=== PATIENT | male | born 1960 | race Caucasian/White ===

== ENCOUNTER 2016-10-22 09:28 | Outpatient (CLI) | payer BC ==
[2014-10-01 11:35] VITALS: BP 142/60
[2016-10-22 10:16] LABS: eGFR (African) > 60; eGFR (Non-African) > 60
== END 2016-10-22 09:30 ==
LOC: LAB 09:28
PROVIDERS: ATTEND Family Medicine
DX: E78.2 Mixed hyperlipidemia (principal)
CPT/HCPCS: 36415; 80053; 80061

== ENCOUNTER 2016-10-27 07:49 | Outpatient (CLI) | payer BC ==
[2014-10-01 11:35] VITALS: BP 142/60
--- NOTE | 2016-10-27 17:23 | Diagnostic Imaging Report ---
[facility] [address] [facility].[address] [address] Report Submission Date: Oct 27, 2016 3:37:14 PM CASTING MACHINE OPERATOR Patient Study Name: ORALIA NICHOLS Date: Oct 27, 2016 8:07:03 AM CASTING MACHINE OPERATOR Modality Type: US Gender: M Description: ABDOMEN COMPLETE : 56 Institution: [facility] Physician: RICHARD OTT - OP Ultrasound abdomen History: 6 MONTH FOLLOW-UP, THROMBOCYTOPENIA, ALCOHOLIC CIRRHOSIS Multiple grayscale and color Doppler images of the abdomen are submitted Findings: Comparison: September 30, 2010 Visualized portion of the pancreatic head and body are within normal limits The liver is enlarged and heterogeneous in echotexture suggestive of hepatic steatosis Portal venous flow is antegrade to the liver The aorta demonstrates atherosclerotic disease, it is normal in caliber The right kidney measures 11 x 7 x 6 cm there is no obvious right hydronephrosis Gallbladder wall thickness measures 3.5 mm, slightly thickened. Minimal sludge/ tiny stones are seen in the gallbladder. Common bile duct measures 6 mm in its proximal portion, previously 3.4 mm The left kidney margins are not well seen, it measures 12.5 x 6.7 x 5.3 cm, no left hydronephrosis. Duplicated left renal collecting system is questioned. Spleen measures 11.8 cm Impression: 1. Hepatomegaly. Coarse hepatic echotexture may be due to hepatic steatosis/ known cirrhosis 2. Small amount of sludge versus tiny gallstones. Gallbladder wall is slightly thickened. No evidence of pericholecystic fluid. Prominent common bile duct. 3. No hydronephrosis bilaterally 4. Spleen measures 11.8 cm Electronically signed on Oct 27, 2016 3:37:14 PM CASTING MACHINE OPERATOR by: Blanca MCALLISTER
== END 2016-10-27 07:50 ==
LOC: RAD 07:49
PROVIDERS: ATTEND Family Medicine
DX: D69.6 Thrombocytopenia, unspecified (principal); K70.30 Alcoholic cirrhosis of liver without ascites
CPT/HCPCS: 76700

== ENCOUNTER 2016-11-27 13:07 | Outpatient (CLI) | payer BC ==
[2014-10-01 11:35] VITALS: BP 142/60
== END 2016-11-27 13:10 ==
LOC: POD 13:07
PROVIDERS: ATTEND Podiatrist
DX: B35.1 Tinea unguium (principal); M79.674 Pain in right toe(s); M79.675 Pain in left toe(s)
CPT/HCPCS: 99214

== ENCOUNTER 2017-04-08 07:14 | Outpatient (CLI) | payer BC ==
[2014-10-01 11:35] VITALS: BP 142/60
[2017-04-08 08:16] LABS: eGFR (African) > 60; eGFR (Non-African) > 60
== END 2017-04-08 07:15 ==
LOC: LAB 07:14
PROVIDERS: ATTEND Family Medicine
DX: E78.2 Mixed hyperlipidemia (principal); R73.9 Hyperglycemia, unspecified
CPT/HCPCS: 36415; 80053; 80061; 83036

== ENCOUNTER 2017-04-13 07:42 | Outpatient (CLI) | payer BC ==
[2014-10-01 11:35] VITALS: BP 142/60
--- NOTE | 2017-04-13 15:12 | Diagnostic Imaging Report ---
[facility] [address] [facility].[address] [address] Report Submission Date: Apr 13, 2017 1:51:10 PM CDT Patient Study Name: ORALIA NICHOLS Date: Apr 13, 2017 7:59:21 AM CDT Modality Type: US Gender: M Description: ABDOMEN COMPLETE : 56 Institution: [facility] Physician RICHARD OTT - MARY Ultrasound abdomen complete Date of exam: April 13, 2017. Clinical History: CIRRHOSIS, 6 MONTH FOLLOW-UP (Hx) FINDINGS: Comparison is made with October 27, 2016. The liver remains course in echogenicity with somewhat nodular surface contour suggesting underlying cirrhosis or fatty liver. No hepatic mass or ascites is identified. Normal Doppler color flow again evident in the portal vein. The liver measures 16.8 cm. The aorta measures 2.5 cm proximally, 1.9 cm 2.0 cm distal 8. The right kidney measures 10.6 x 6.0 x 6.4 cm. There is a small mid renal right cortical cyst. No hydronephrosis is identified. Multiple mobile gallstones are present within the gallbladder. The gallbladder measures 7 cm with gallbladder wall thickness at the upper limits of normal measuring 0.35 cm. This may be secondary to mild cholecystitis or related to underlying cirrhosis. The common bile duct measures a row 0.6 cm. The left kidney measures 13.2 x 7.0 x 6.1 cm and is normal in appearance. The spleen measures 12 cm and is homogeneous in echogenicity. IMPRESSION: Echogenic liver that may represent underlying cirrhosis or fatty liver. Cholelithiasis and gallbladder wall thickening. The gallbladder wall thickening may represent mild cholecystitis or may be related to underlying cirrhosis. Electronically signed on Apr 13, 2017 1:51:10 PM CDT by: Janice MCALLISTER
== END 2017-04-13 07:43 ==
LOC: RAD 07:42
PROVIDERS: ATTEND Family Medicine
DX: K70.30 Alcoholic cirrhosis of liver without ascites (principal)
CPT/HCPCS: 76700

== ENCOUNTER 2017-06-21 11:32 | Day surgery (SDC) | payer BC ==
[2014-10-01 11:35] VITALS: BP 142/60
[~2017-06-21 11:32] MED LIST: LACTATED RINGERS 1,000 ML IV.SOLN IV ONE; PROPOFOL 500 MG/50 ML VIAL IV ONE; SALINE FLUSH 10 ML DISP.SYRIN IVF ONE
--- NOTE | 2017-06-21 13:41 | GI Report ---
REFERRING PHYSICIAN: Dr. Jodi Mojica ROTARY ENGRAVER: Vance Foster MD PROCEDURE MEDICATION: Propofol as per anesthesia. INDICATIONS: This 57-year-old man is referred with a history of Castillo's esophagus for follow up biopsies. Patient also does have a fatty liver and cirrhosis both from alcohol over usage, which he states he stopped years ago. The patient does have central obesity. He denies dysphagia. He denies vomiting. He is 5 feet 5 inches and weighs 118 kilograms and carries most of that weight centrally. PROCEDURE PERFORMED: Endoscopy and biopsies. PROCEDURE: An Olympus video endoscope is advanced into the esophagus without difficulty. No varices noted. Patient does have what appears to be short-segment Castillo's extending up to about 2 cm above the GE junction. Biopsies were taken of that circumferentially at the end of the procedure. Cardia of the stomach shows a small hiatal hernia. Fundus, body, and antrum of the stomach, the stomach dilates easily. No residual food noted. Pylorus was open. Duodenal bulb and first and second part of the duodenum exam were normal. The patient tolerated the procedure well. FINDINGS: 1. Patient has a hiatal hernia. 2. Short-segment Castillo's. Biopsies taken and are pending. RECOMMENDATIONS: 1. Would take his PPI ideally within 30 minutes before the meal. 2. I would always take an antacid at bedtime, Gaviscon or antacid of choice. 3. Smaller meals. 4. Losing 15 to 20 pounds of weight would be beneficial. 5. He has stopped alcohol intake. 6. Pending the biopsies, if still Castillo's, needs it re-looked at again within 3 years. cc: Dr. Jodi MCALLISTER
== END 2017-06-21 11:33 ==
LOC: OPSURG 11:32
PROVIDERS: ATTEND Internal Medicine Gastroenterology
DX: K22.70 Barrett's esophagus without dysplasia (principal); K44.9 Diaphragmatic hernia without obstruction or gangrene; E66.9 Obesity, unspecified
CPT/HCPCS: 88305; J2704; J7120; 43239; S1016

== ENCOUNTER → 2017-10-21 | Outpatient (CLI) | payer BC ==
[2014-10-01 11:35] VITALS: BP 142/60
--- NOTE | 2017-10-21 10:08 | Diagnostic Imaging Report ---
RICHARD OTT [address] [facility] [address] [address] Report Submission Date: Oct 21, 2017 10:02:51 AM PROJECTION TECHNICIAN Patient Study Name: ORALIA NICHOLS Date: Oct 21, 2017 8:04:27 AM PROJECTION TECHNICIAN Modality Type: US Gender: M Description: ABDOMEN COMPLETE : 56 Institution: Physician: RICHARD OTT Examination: Ultrasound abdomen History: CIRRHOSIS 6 MONTH FOLLOW-UP (Hx) Comparison exam: 13 April 2017 Findings: Sonographic evaluation of the abdomen demonstrates a gallbladder small mobile stones. Gallbladder wall measures 2.3 mm. Common bile duct measures 3.7 mm. No intrahepatic biliary dilation. Liver demonstrates increased echogenicity. No mass. Normal flow on color analysis. Normal portal vein Doppler waveforms. Right kidney measures 10.2 cm in length. Left kidney measures 13.0 cm in length. No hydronephrosis. No cortical mass. Pancreatic region and abdominal aorta are without gross irregularity. Spleen measures 11.8 cm maximally - no central lesion. Impression: Echogenic hepatic parenchyma - secondary to cirrhosis and/or fatty infiltration. No central lesion. Small mobile gallstones. No wall thickening/inflammation or evidence for obstruction. Spleen upper limits normal size. No central lesion. Electronically signed on Oct 21, 2017 10:02:51 AM PROJECTION TECHNICIAN by: Yan MCALLISTER
== END ==
LOC: RAD 07:42
PROVIDERS: ATTEND Family Medicine
DX: E11.9 Type 2 diabetes mellitus without complications (principal); K70.30 Alcoholic cirrhosis of liver without ascites
CPT/HCPCS: 36415; 76700; 83036

== ENCOUNTER 2018-04-20 08:43 | Outpatient (CLI) | payer BC ==
[2014-10-01 11:35] VITALS: BP 142/60
[2018-04-20 09:52] LABS: eGFR (African) > 60; eGFR (Non-African) > 60
== END 2018-04-20 08:45 ==
LOC: LAB 08:43
PROVIDERS: ATTEND Family Medicine
DX: E11.9 Type 2 diabetes mellitus without complications (principal); E78.2 Mixed hyperlipidemia
CPT/HCPCS: 36415; 80053; 80061; 83036

== ENCOUNTER 2018-04-26 07:49 | Outpatient (CLI) | payer BC ==
[2014-10-01 11:35] VITALS: BP 142/60
--- NOTE | 2018-04-26 09:46 | Diagnostic Imaging Report ---
RICHARD OTT [facility] [address] [facility] [address] [place] [address]. [address] Report Submission Date: Apr 26, 2018 8:43:42 AM CDT Patient Study Name: ORALIA NICHOLS Date: Apr 26, 2018 8:09:11 AM CDT Modality Type: US Gender: M Description: US ABD LIMITED : 56 Institution: [facility] Physician: RICHARD OTT Examination: Ultrasound gallbladder History: ruq ultrasound - hx of cirrhosis of liver routine 6 mth follow up possible polyps in gb Comparison exam: None provided. Findings: Sonographic evaluation of the right upper quadrant demonstrates the gallbladder without stones or sludge. No gallbladder wall polypoid abnormality. Gallbladder wall measures 1.5 mm. Common bile duct measures 5.6 mm. No intrahepatic biliary dilation. Liver demonstrates marginal nodularity and generalized increased echogenicity. Normal portal vein Doppler waveform. Right kidney measures 10.1 cm in length. No cortical mass or cyst. No hydronephrosis. Pancreatic region without gross irregularity. Impression: No gallstone or obstruction. No gallbladder wall polyp identified. Mild hepatic marginal nodularity - patient with history of cirrhosis. Mild fatty infiltration. Electronically signed on Apr 26, 2018 8:43:42 AM CDT by: Yan MCALLISTER
== END 2018-04-26 07:50 ==
LOC: RAD 07:49
PROVIDERS: ATTEND Family Medicine
DX: K70.30 Alcoholic cirrhosis of liver without ascites (principal)
CPT/HCPCS: 76705

== ENCOUNTER 2018-10-25 07:45 | Outpatient (CLI) | payer BC ==
[2014-10-01 11:35] VITALS: BP 142/60
--- NOTE | 2018-10-25 09:33 | Diagnostic Imaging Report ---
SHARON DO [facility] [address] [facility] [address] [address] Report Submission Date: Oct 25, 2018 8:46:04 AM LAB ANALYST Patient Study Name: ORALIA NICHOLS Date: Oct 25, 2018 8:00:51 AM LAB ANALYST Modality Type: US Gender: M Description: US ABDOMEN LIMITED : 56 Institution: [facility] Physician: SHARON DO Examination: Ultrasound abdomen limited. History: ALCOHOLIC CIRRHOSIS Findings: Sonographic evaluation of the right upper quadrant demonstrates the gallbladder without stones or sludge. Gallbladder wall measures 1.9 mm. Common bile duct measures 2.4 mm. No intrahepatic biliary dilation. Liver demonstrates mildly coarse echogenicity. No mass or cyst. Normal flow on color analysis. Normal portal vein Doppler waveforms. Right kidney measures 11.0 cm in length. No cortical mass or cyst. No hydronephrosis. Pancreatic region without gross irregularity. Impression: No gallstone or obstruction. Mildly coarse hepatic echogenicity - patient with reported history of alcoholic cirrhosis. Electronically signed on Oct 25, 2018 8:46:04 AM LAB ANALYST by: Yan MCALLISTER
== END 2018-10-25 07:47 ==
LOC: RAD 07:45
PROVIDERS: ATTEND Internal Medicine Gastroenterology
DX: K70.30 Alcoholic cirrhosis of liver without ascites (principal)
CPT/HCPCS: 36415; 76705; 82105

== ENCOUNTER 2019-04-27 08:56 | Outpatient (CLI) | payer BC ==
[2014-10-01 11:35] VITALS: BP 142/60
[2019-04-27 09:40] LABS: HDL 49 mg/dL (>40); eGFR (Non-African) > 60
== END 2019-04-27 09:10 ==
LOC: LAB 08:56
PROVIDERS: ATTEND Family Medicine
DX: Z13.220 Encounter for screening for lipoid disorders (principal)
CPT/HCPCS: 36415; 80053; 80061; 84153

== ENCOUNTER 2019-05-22 07:52 | Outpatient (CLI) | payer BC ==
[2014-10-01 11:35] VITALS: BP 142/60
--- NOTE | 2019-05-24 14:55 | Diagnostic Imaging Report ---
SHARON DO [facility] [address] [facility] [address] [place] [address]. [address] Report Submission Date: May 22, 2019 9:14:42 AM CDT Patient Study Name: ORALIA NICHOLS Date: May 22, 2019 8:09:16 AM CDT Modality Type: US Gender: M Description: US ABDOMEN LIMITED : 56 Institution: [facility] Physician: SHARON DO Exam: Abdominal ultrasound limited. History: Cirrhosis. Real-time grayscale imaging of the right upper quadrant is performed and compared to study dated October 25, 2018. The liver measures 15.7 cm in length no change in its course echotexture is noted. No space-occupying lesion is noted. The gallbladder is distended without stones. The common bile duct measures 2.9 mm. The right kidney is of normal echotexture. No ascites or other abdominal masses are identified. Impression: No significant change. Electronically signed on May 22, 2019 9:14:42 AM CDT by: Hugh MCALLISTER
== END 2019-05-22 07:54 ==
LOC: RAD 07:52
PROVIDERS: ATTEND Internal Medicine Gastroenterology
DX: K70.30 Alcoholic cirrhosis of liver without ascites (principal)
CPT/HCPCS: 36415; 76705; 82105

== ENCOUNTER 2019-05-30 09:41 | Outpatient (CLI) | payer BC ==
[2014-10-01 11:35] VITALS: BP 142/60
[2019-05-30 09:55] LABS: BASOPHILS % 0.3 % (0.0-1.5); NEUTROPHILS # 4.3 # k/uL (1.4-7.7)
[2019-05-30 10:19] LABS: eGFR (Non-African) > 60
== END 2019-05-30 09:43 ==
LOC: LAB 09:41
PROVIDERS: ATTEND Internal Medicine Gastroenterology
DX: K70.30 Alcoholic cirrhosis of liver without ascites (principal); R74.0 Nonspecific elevation of levels of transaminase and lactic acid dehydrogenase [LDH]
CPT/HCPCS: 36415; 80053; 85025